=== PATIENT | female | born 1995 | race African-American/Black ===

== ENCOUNTER 2018-06-30 10:03 | Emergency (ER) | payer MEDICAID ==
[~2018-06-30] VITALS: Ht 170.2 cm; Wt 80.0 kg
[2018-06-30] MEDS ORDERED: ondansetron/PF 4mg/2ml inj IV ONE (10:15)
[2018-06-30] MEDS ORDERED: normal saline 1000ML IV soln IVB ONE (10:15)
[2018-06-30 10:34] LABS: BASOPHILS % (AUTO) 0.3 % (0-1); EOSINOPHILS # (AUTO) 0.1 X10'3 (0-0.9); EOSINOPHILS % (AUTO) 1.4 % (0-6); HEMATOCRIT 30.6 % (35.0-45.0); HEMOGLOBIN 9.8 g/dl (12.0-16.0); LYMPHOCYTES # (AUTO) 1.8 X10'3 (1.1-4.8); LYMPHOCYTES % (AUTO) 17.6 % (21-51); MEAN CORPUSCULAR HEMOGLOBIN 24.5 PG (27.0-31.0); MEAN CORPUSCULAR HGB CONC 31.9 % (33.0-36.5); MEAN CORPUSCULAR VOLUME 76.9 FL (78-98); MONOCYTES # (AUTO) 0.8 X10'3 (0-0.9); MONOCYTES % (AUTO) 8.2 % (2-12); NEUTROPHILS # (AUTO) 7.3 X10'3 (1.8-7.7); NEUTROPHILS % (AUTO) 72.5 % (42-75); PLATELET COUNT 288 X10'3 (140-440); RED BLOOD COUNT 3.99 X10'6 (4.20-5.60); RED CELL DISTRIBUTION WIDTH 15.7 % (11.5-14.5); WHITE BLOOD COUNT 10.1 X10'3 (4.5-11.0)
[2018-06-30 10:35] LABS: CLARITY,URINE SLIGHTLY CLOUDY (Clear); COLOR,URINE YELLOW (Yellow); GLUCOSE, URINE NEGATIVE (Neg); KETONES,URINE NEGATIVE (Neg); LEUKOCYTE ESTERASE ,URINE TRACE (Neg); NITRITES, URINE NEGATIVE (Neg); OCCULT BLOOD,URINE NEGATIVE (Neg); PROTEIN,URINE NEGATIVE (Neg); UROBILINOGEN,URINE 0.2 E.U/dL (0.2-1.0)
[2018-06-30 10:38] LABS: UA COLLECTION TYPE CLN CATCH MIDSTREAM; URINE HCG POSITIVE (NEG)
[2018-06-30 10:45] LABS: RBC,URINE NONE SEEN /HPF (0-2)
[2018-06-30 10:46] LABS: BACTERIA,URINE 3+ /HPF (Neg); MUCUS STRANDS MODERATE /LPF (Neg); SQUAMOUS EPITHELIAL CELL,UR MANY /LPF (FEW)
[2018-06-30 10:50] LABS: ALANINE AMINOTRANSFERASE 50 U/L (12-78); ALBUMIN 3.1 G/DL (3.4-5.0); ALBUMIN/GLOBULIN RATIO 0.8 (1.1-1.5); ALKALINE PHOSPHATASE 76 IU/L (46-116); ANION GAP 11 (8-16); ASPARTATE AMINO TRANSFERASE 33 U/L (10-37); BILIRUBIN,TOTAL 0.2 MG/DL (0.1-1.0); BLOOD UREA NITROGEN 4 MG/DL (7-18); BUN/CREATININE RATIO 6.1 (6.6-38.0); CALCIUM 9.2 MG/DL (8.5-10.1); CHLORIDE 103 MMOL/L (99-107); CREATININE 0.66 MG/DL (0.40-0.90); GLUCOSE 91 MG/DL (70-104); POTASSIUM 3.7 MMOL/L (3.5-5.1); SODIUM 135 MMOL/L (135-145); TOTAL CARBON DIOXIDE 21.1 MMOL/L (24-32); eGFR > 90 ML/MIN
[2018-06-30 11:22] LABS: BETA HCG,QUANTITATIVE 23593 mIU/ml
[2018-06-30 12:12] VITALS: BP 125/79
[2018-06-30] MEDS ORDERED: CEPH-571 PO (12:27)
[2018-06-30] MEDS ORDERED: PREN1TAB75 PO (12:27)
== END 2018-06-30 12:52 | disposition home or self-care (01) ==
LOC: ER 10:04
DX: N39.0 Urinary tract infection, site not specified (principal); Z33.1 Pregnant state, incidental; Z79.899 Other long term (current) drug therapy
CPT/HCPCS: 36415; 76805; 80053; 81001; 81025; 84702; 85025; 96374; 99285; J2405; J7030

== ENCOUNTER 2018-07-24 18:06 | Emergency (ER) | payer MEDICAID ==
[~2018-07-24] VITALS: Ht 170.2 cm; Wt 92.3 kg
[~2018-07-24 18:06] MED LIST: CEPH-571 PO; PREN1TAB75 PO
[2018-07-24 18:31] VITALS: BP 125/88
[2018-07-24 18:52] LABS: URINE HCG NEGATIVE (NEG)
[2018-07-24 18:54] LABS: CLARITY,URINE CLEAR (Clear); COLOR,URINE STRAW (Yellow); GLUCOSE, URINE NEGATIVE (Neg); KETONES,URINE NEGATIVE (Neg); LEUKOCYTE ESTERASE ,URINE SMALL (Neg); NITRITES, URINE NEGATIVE (Neg); OCCULT BLOOD,URINE MODERATE (Neg); PH,URINE 7.5 (4.8-8.0); PROTEIN,URINE NEGATIVE (Neg); UROBILINOGEN,URINE 0.2 E.U/dL (0.2-1.0)
[2018-07-24 19:01] LABS: UA COLLECTION TYPE CLN CATCH MIDSTREAM
[2018-07-24 19:02] LABS: BACTERIA,URINE FEW /HPF (Neg); RBC,URINE 0-2 /HPF (0-2); SQUAMOUS EPITHELIAL CELL,UR MODERATE /LPF (FEW); WBC,URINE 0-4 /HPF (0-4)
== END 2018-07-24 19:34 | disposition home or self-care (01) ==
LOC: ER 18:07
DX: N89.8 Other specified noninflammatory disorders of vagina (principal); Z79.2 Long term (current) use of antibiotics; Z79.899 Other long term (current) drug therapy
CPT/HCPCS: 81001; 81025; 87088; 99284

== ENCOUNTER 2018-08-13 17:55 | Emergency (ER) | payer MEDICAID ==
[~2018-08-13] VITALS: Ht 170.2 cm; Wt 90.0 kg
[2018-08-13 18:07] VITALS: BP 117/83
[2018-08-13 18:24] LABS: URINE HCG NEGATIVE (NEG)
[2018-08-13 19:01] LABS: CLARITY,URINE CLEAR (Clear); COLOR,URINE YELLOW (Yellow); GLUCOSE, URINE NEGATIVE (Neg); KETONES,URINE NEGATIVE (Neg); LEUKOCYTE ESTERASE ,URINE SMALL (Neg); NITRITES, URINE NEGATIVE (Neg); OCCULT BLOOD,URINE MODERATE (Neg); PROTEIN,URINE NEGATIVE (Neg); UROBILINOGEN,URINE 0.2 E.U/dL (0.2-1.0)
[2018-08-13 19:13] LABS: UA COLLECTION TYPE CLN CATCH MIDSTREAM
[2018-08-13 19:26] LABS: BACTERIA,URINE 3+ /HPF (Neg); MUCUS STRANDS NONE SEEN /LPF (Neg); RBC,URINE 0-2 /HPF (0-2); SQUAMOUS EPITHELIAL CELL,UR MANY /LPF (FEW); WBC,URINE 0-4 /HPF (0-4)
[2018-08-13] MEDS ORDERED: IBUP-1986 PO (21:44)
== END 2018-08-13 21:49 | disposition home or self-care (01) ==
LOC: ER 17:56
DX: M54.5 Low back pain (principal)
CPT/HCPCS: 72100; 81001; 81025; 99285

== ENCOUNTER 2018-10-21 18:07 | Emergency (ER) | payer MEDICAID ==
[~2018-10-21] VITALS: Ht 170.2 cm; Wt 91.0 kg
[~2018-10-21 18:07] MED LIST changes: +IBUP-1986 PO
[2018-10-21 19:21] LABS: URINE HCG NEGATIVE (NEG)
[2018-10-21 19:29] LABS: CLARITY,URINE CLOUDY (Clear); COLOR,URINE YELLOW (Yellow); GLUCOSE, URINE NEGATIVE (Neg); KETONES,URINE TRACE mg/dl (Neg); LEUKOCYTE ESTERASE ,URINE TRACE (Neg); NITRITES, URINE NEGATIVE (Neg); OCCULT BLOOD,URINE LARGE (Neg); PROTEIN,URINE 30 mg/dl (Neg); UA COLLECTION TYPE CLN CATCH MIDSTREAM; UROBILINOGEN,URINE 0.2 E.U/dL (0.2-1.0)
[2018-10-21 19:57] LABS: BACTERIA,URINE 1+ /HPF (Neg); RBC,URINE TNTC /HPF (0-2); SQUAMOUS EPITHELIAL CELL,UR MANY /LPF (FEW)
--- NOTE | 2018-10-21 20:59 | NUR ---
ATTEMPTED IV X 2 ATTEMPTS, UNSUCCESSFUL - ANOTHER RN IS ATTEMPTING NOW.
[2018-10-21 21:27] LABS: BASOPHILS % (AUTO) 0.7 % (0-1); EOSINOPHILS # (AUTO) 0.1 X10'3 (0-0.9); EOSINOPHILS % (AUTO) 1.5 % (0-6); HEMATOCRIT 35.5 % (35.0-45.0); HEMOGLOBIN 11.3 g/dl (12.0-16.0); LYMPHOCYTES # (AUTO) 2.5 X10'3 (1.1-4.8); LYMPHOCYTES % (AUTO) 44.2 % (21-51); MEAN CORPUSCULAR HGB CONC 31.8 % (33.0-36.5); MEAN CORPUSCULAR VOLUME 75.6 FL (78-98); MEAN PLATELET VOLUME 8.6 FL (7.4-10.4); MONOCYTES # (AUTO) 0.7 X10'3 (0-0.9); NEUTROPHILS # (AUTO) 2.3 X10'3 (1.8-7.7); NEUTROPHILS % (AUTO) 40.6 % (42-75); PLATELET COUNT 269 X10'3 (140-440); WHITE BLOOD COUNT 5.6 X10'3 (4.5-11.0)
[2018-10-21 21:36] LABS: ALANINE AMINOTRANSFERASE 23 U/L (12-78); ALBUMIN 3.8 G/DL (3.4-5.0); ALBUMIN/GLOBULIN RATIO 1.1 (1.1-1.5); ALKALINE PHOSPHATASE 62 IU/L (46-116); ANION GAP 11 (8-16); ASPARTATE AMINO TRANSFERASE 22 U/L (10-37); BILIRUBIN,TOTAL 0.2 MG/DL (0.1-1.0); BLOOD UREA NITROGEN 11 MG/DL (7-18); BUN/CREATININE RATIO 11.2 (6.6-38.0); CALCIUM 8.9 MG/DL (8.5-10.1); CHLORIDE 106 MMOL/L (99-107); CREATININE 0.98 MG/DL (0.40-0.90); GLUCOSE 79 MG/DL (70-104); SODIUM 142 MMOL/L (135-145); TOTAL CARBON DIOXIDE 24.6 MMOL/L (24-32); TOTAL PROTEIN 7.4 G/DL (6.4-8.2); eGFR 84 ML/MIN
[2018-10-21] MEDS ORDERED: ibuprofen tablet 400 MG TABLET PO ONE (22:45)
[2018-10-21] MEDS ORDERED: CEPH-572 PO (22:49)
[2018-10-21 23:07] VITALS: BP 112/32
== END 2018-10-21 23:08 | disposition home or self-care (01) ==
LOC: ER 18:07
DX: N94.6 Dysmenorrhea, unspecified (principal); N39.0 Urinary tract infection, site not specified; Z79.2 Long term (current) use of antibiotics; Z79.899 Other long term (current) drug therapy
CPT/HCPCS: 36415; 74176; 80053; 81001; 81025; 85025; 99284